=== PATIENT | female | born 1995 | race Caucasian/White ===

== ENCOUNTER 2017-05-28 04:47 | Emergency (ER) | payer OTHER ==
[~2017-05-28] VITALS: Ht 157.5 cm; Wt 61.1 kg
[2017-05-28 05:00] VITALS: TEMP 36.8; O2SAT 96; Ht 157.5 cm; Wt 61.1 kg
[2017-05-28 05:34] LABS: BASO % 0.5 %; BASO ABS # 0.05 K/uL (0-0.2); COMPLETE YES; EOS % 1.4 %; IG% 0.2 %; LYMPH % 33.5 %; LYMPH ABS # 3.09 K/uL (1.2-3.4); MEAN CELL VOLUME 80.6 fL (80-100); MEAN CORPUSCULAR HEMOGLOBIN 27.6 pg (25-34); MEAN CORPUSCULAR HGB CONC 34.3 g/dl (32-36); MEAN PLATELET VOLUME 9.2 fL (7.4-10.4); MONO % 7.8 %; NEUT % 56.6 %; PLATELET COUNT 446 K/uL (130-400); RED BLOOD COUNT 4.34 M/uL (4.2-5.4); WHITE BLOOD COUNT 9.22 K/uL (4.8-10.8)
--- NOTE | 2017-05-28 05:59 | EMERGENCY ROOM VISIT NOTE ---
History First contact with patient: 04:57 Chief Complaint: ALCOHOL OVERDOSE Stated Complaint: ALCOHOL OVERDOSE Nursing Triage Summary: Patient arrived BLS for evaluation of alcohol overdose. Patient was found sleeping in second floor laundry room of [facility]. Patient disoriented upon arrival to ED. Patient believes she is in [place] and was drinking at a [place] bar. Patient covered in dried dirt. Patient appears to be hallucinating and talking to people who are not there. History of Present Illness The patient is a 22 year old female who presents to the Emergency Room with reported alcohol overdose. Reportedly, the patient was found sleeping in the laundry room of the apartment building. The patient admits to drinking alcohol. The patient states that she is a student at [employer]. She denies any falls or injuries but does have several scrapes on her hands and does have dirt on her arms. She denies any pain. Review of Systems A 10 system review of systems was completed with positives and pertinent negatives listed in the HPI. Past Medical/Surgical History patient denies Social History Smoking Status: Never Smoker Occupation Status: student Current/Historical Medications No Active Prescriptions or Reported Meds Physical Exam Vital Signs Date Time Temp Pulse Resp B/P (MAP) Pulse Ox O2 Delivery O2 Flow Rate FiO2 05/28/17 11:40 86 18 128/78 97 05/28/17 09:47 78 16 118/75 100 Room Air 05/28/17 08:28 84 16 108/60 99 Room Air 05/28/17 07:03 77 18 107/61 95 Room Air 05/28/17 05:40 99 16 111/66 96 Room Air 05/28/17 05:00 36.8 131 18 139/89 96 Room Air 05/28/17 05:00 96 Room Air 05/28/17 05:00 109 Physical Exam VITALS: Vitals are noted on the nurse's note and reviewed by myself. Vital signs stable. GENERAL: This is a 22-year-old female, in no acute distress, nondiaphoretic, well-developed well-nourished. SKIN: The skin was without rashes, erythema, edema, or bruising. T there a few superficial scratches over the hands. There is no significant ecchymosis, edema to the extremities. There is no tenting of the skin. Capillary reflex less than 2 seconds. HEAD: Normocephalic atraumatic. EARS: External auditory canals clear, tympanic membranes pearly marroquin without erythema or effusion bilaterally. No hemotympanums. No parekh sign. No mastoid tenderness. EYES: Pupils equal round and reactive to light and accommodation. Conjunctivae without injection, sclerae without icterus. Extraocular movements intact. NOSE: Patent, turbinates without inflammation or discharge. No sinus tenderness. No septal hematoma or bleeding. FACE: No facial tenderness. Full range of motion of the jaw without tenderness. MOUTH: Mucous membranes moist. Pharynx without erythema or exudate. Uvula midline. Airway patent. Tongue does not deviate. NECK: Supple without nuchal rigidity. Cervical spine is nontender. Full range of motion of the neck without tenderness. No JVD. HEART: Regular rate and rhythm without murmurs gallops or rubs. LUNGS: Clear to auscultation bilaterally without wheezes, rales or rhonchi. No dullness to percussion. No retractions or accessory muscle use. No chest tenderness. ABDOMEN: Positive bowel sounds x 4. Soft, nontender, without masses or organomegaly. MUSCULOSKELETAL: No muscle atrophy, erythema, or edema noted. Full range of motion without joint tenderness in all extremities. No tenderness to palpation. Normal gait. Strength 5/5 throughout. NEURO: The patient was not oriented to place. The patient smelled of alcohol and seemed to be intoxicated. The patient seemed to be checking to people who were not there. No focal neurological deficits. Medical Decision & Procedures ER Provider Diagnostic Interpretation: HEAD WITHOUT CONTRAST (CT) CT DOSE: 537.48 mGy.cm HISTORY: Mental status change. altered mental status TECHNIQUE: Multiaxial CT images of the head were performed without the use of intravenous contrast. A dose lowering technique was utilized adhering to the principles of ALARA. Comparison: None. Findings: The paranasal sinuses and mastoid air cells are clear. The calvarium and skull base are intact. The ventricles and sulci are within normal limits. There is no mass, hematoma, midline shift, or acute infarct. Impression: No acute intracranial abnormality. Laboratory Results 05/28/17 05:24 Red Blood Count 4.34, Mean Corpuscular Volume 80.6, Mean Corpuscular Hemoglobin 27.6, Mean Corpuscular Hemoglobin Concent 34.3, Mean Platelet Volume 9.2, Neutrophils (%) (Auto) 56.6, Lymphocytes (%) (Auto) 33.5, Monocytes (%) (Auto) 7.8, Eosinophils (%) (Auto) 1.4, Basophils (%) (Auto) 0.5, Neutrophils # (Auto) 5.21, Lymphocytes # (Auto) 3.09, Monocytes # (Auto) 0.72, Eosinophils # (Auto) 0.13, Basophils # (Auto) 0.05 05/28/17 04:54 Test 05/28/17 04:54 05/28/17 04:59 05/28/17 05:24 Anion Gap 8.0 mmol/L (3-11) Est Creatinine Clear Calc Drug Dose 68.4 ml/min Estimated GFR () 82.0 Estimated GFR (Non- 70.7 BUN/Creatinine Ratio 7.3 (10-20) Calcium Level 8.7 mg/dl (8.5-10.1) Ethyl Alcohol mg/dL 226.0 mg/dl (0-3) White Blood Count 9.22 K/uL (4.8-10.8) Red Blood Count 4.34 M/uL (4.2-5.4) Hemoglobin 12.0 g/dL (12.0-16.0) Hematocrit 35.0 % (37-47) Mean Corpuscular Volume 80.6 fL (80-100) Mean Corpuscular Hemoglobin 27.6 pg (25-34) Mean Corpuscular Hemoglobin Concent 34.3 g/dl (32-36) Platelet Count 446 K/uL (130-400) Mean Platelet Volume 9.2 fL (7.4-10.4) Neutrophils (%) (Auto) 56.6 % Lymphocytes (%) (Auto) 33.5 % Monocytes (%) (Auto) 7.8 % Eosinophils (%) (Auto) 1.4 % Basophils (%) (Auto) 0.5 % Neutrophils # (Auto) 5.21 K/uL (1.4-6.5) Lymphocytes # (Auto) 3.09 K/uL (1.2-3.4) Monocytes # (Auto) 0.72 K/uL (0.11-0.59) Eosinophils # (Auto) 0.13 K/uL (0-0.5) Basophils # (Auto) 0.05 K/uL (0-0.2) RDW Standard Deviation 46.5 fL (36.4-46.3) RDW Coefficient of Variation 15.7 % (11.5-14.5) Immature Granulocyte % (Auto) 0.2 % Immature Granulocyte # (Auto) 0.02 K/uL (0.00-0.02) Salicylates Level < 1.7 mg/dl (2.8-20) Acetaminophen Level < 2 ug/ml (10-30) Medical Decision Prior records/ancillary studies reviewed. Triage Nursing notes reviewed. Additional history obtained from nursing/EMS. The patient's history was concerning for altered mental status and a possible alcohol overdose. Differential diagnosis: Etiologies such as alcohol intoxication, toxicologic, infection, hypoglycemia, electrolyte abnormalities, cardiac sources, intracerebral event, neurologic, as well as others were entertained. Physical examination: As above. The patient is clinically intoxicated. The patient does have a few superficial abrasions to the arms but no tenderness, ecchymosis, edema or decreased range of motion. She also has some dirt over her hands and arm. She denies any falls or injuries. There is no clinical evidence for head injury. ER treatment provided: Monitoring Aspiration precautions The patient was frequently reassessed. Diagnostic interpretation by me: Cardiac monitoring did not reveal any evidence of dysrhythmia. The labs revealed no significant electrolyte abnormality. There is no leukocytosis. Salicylate and Tylenol levels are not elevated.. The patient's blood alcohol level was 226 mg/dL. Imaging studies: CT scan of the brain was negative as above The patient came to the emergency department with report alcohol overdose. She was found sleeping in a laundry room of an apartment building where she did not live. She denied any falls, injuries or complaints when she arrived. The patient repeatedly stated she would like "them" to just go home and at some points she stated she would like "them "to come into her room. She did point stating they were outside. Nursing states they also observed the patient on the ambulance litter seeming to talk to someone that was not there. I advised the patient that I was concerned because she was pointing to and speaking of people who were not there. She then told me nevermind there is no one there. This could be hallucinations secondary to drug or alcohol use. However, the patient is intoxicated at this time. The patient was monitored. She was allowed to sober up. The patient will need reassessment and possibly psych evaluation when she is completely sober. The case was signed out to Irving Blakely PA-C. Please see his dictation for disposition. By the evaluation outlined above emergent etiologies such as trauma, infection, hypoglycemia, electrolyte abnormalities, cardiac sources, intracerebral event, neurologic,as well as others were deemed relatively unlikely. The patient was informed about the findings as listed above. The patient was counseled on the dangers of excessive alcohol use. I gave my usual and customary discussion regarding this issue. All questions were answered and the patient was pleased with the treatment. Return instructions were outlined and the patient was discharged in stable condition once their mental status improved and a safe destination was confirmed. Outpatient prescription management: None Referral: The patient was referred back to their primary care physician for follow-up in 2 to 3 days for a recheck of their current condition. Impression Primary Impression: Alcohol abuse Additional Impression: Alcoholic intoxication Departure Information Prescriptions No Active Prescriptions or Reported Meds Forms HOME CARE DOCUMENTATION FORM, IMPORTANT VISIT INFORMATION Patient Instructions My [facility] Problem Qualifiers
[2017-05-28 06:03] LABS: ACETAMINOPHEN < 2 ug/ml (10-30)
[2017-05-28 06:37] LABS: BUN/CREATININE RATIO 7.3 (10-20); CALCIUM 8.7 mg/dl (8.5-10.1); CREATININE 1.1 mg/dl (0.60-1.20); POTASSIUM 3.6 mmol/L (3.5-5.1)
--- NOTE | 2017-05-28 06:47 | DIAGNOSTIC IMAGING REPORT ---
HEAD WITHOUT CONTRAST (CT) CT DOSE: 537.48 mGy.cm HISTORY: Mental status change. altered mental status TECHNIQUE: Multiaxial CT images of the head were performed without the use of intravenous contrast. A dose lowering technique was utilized adhering to the principles of ALARA. Comparison: None. Findings: The paranasal sinuses and mastoid air cells are clear. The calvarium and skull base are intact. The ventricles and sulci are within normal limits. There is no mass, hematoma, midline shift, or acute infarct. Impression: No acute intracranial abnormality. The above report was generated using voice recognition software. It may contain grammatical, syntax or spelling errors. Electronically signed by: William Perez M.D. 05/28/2017 6:46 AM Dictated Date/Time: 05/28/2017 6:45 AM
[2017-05-28 11:40] VITALS: BP 128/78; PULSE 86; O2SAT 97
--- NOTE | 2017-05-28 16:31 | EMERGENCY ROOM VISIT NOTE ---
ED Visit Note First contact with patient: 08:15 Patient was signed out to me by Tremaine HENSLEY. Please see her dictation for full history and physical. She remained stable while in the ED this morning. She did wake around 9:30 AM. She requested to be discharged. She had no method of contacting friends. She did not bring any keys, phone, wall, or identification. He not know any numbers of friends. She states she just moved here from [place] and knows very few people. She remembers where the apartment is that she came from, but does not know the address or the name of the resident. She did go back to sleep. She awoke again around 11 AM. At this point she is quite sober. I did re-interview the patient and reexamine her as well. She denied any hallucinations. She states she did not take any drugs last night. She states she only drank too much. No prior psych history. He denies any other medical history. Physical exam, including skin, HEENT, heart, lungs, abdomen, and musculoskeletal system, were all normal. She has tattoos on her right arm. No abrasions or other areas of discomfort. She was discharged to [facility] with a bus token, insisting that she knew where her keys were at [facility]. Alcohol intoxication instructions were given. Avoid alcohol today. Maintain hydration. Tylenol every 6 hours as needed for mild discomfort. Return to the ED for any other concerns. Current/Historical Medications No Active Prescriptions or Reported Meds Allergies Coded Allergies: No Known Allergies (Unverified , 05/28/17) Vital Signs Date Time Temp Pulse Resp B/P (MAP) Pulse Ox O2 Delivery O2 Flow Rate FiO2 05/28/17 11:40 86 18 128/78 97 05/28/17 09:47 78 16 118/75 100 Room Air 05/28/17 08:28 84 16 108/60 99 Room Air 05/28/17 07:03 77 18 107/61 95 Room Air 05/28/17 05:40 99 16 111/66 96 Room Air 05/28/17 05:00 36.8 131 18 139/89 96 Room Air 05/28/17 05:00 96 Room Air 05/28/17 05:00 109 Laboratory Results 05/28/17 05:24 Red Blood Count 4.34, Mean Corpuscular Volume 80.6, Mean Corpuscular Hemoglobin 27.6, Mean Corpuscular Hemoglobin Concent 34.3, Mean Platelet Volume 9.2, Neutrophils (%) (Auto) 56.6, Lymphocytes (%) (Auto) 33.5, Monocytes (%) (Auto) 7.8, Eosinophils (%) (Auto) 1.4, Basophils (%) (Auto) 0.5, Neutrophils # (Auto) 5.21, Lymphocytes # (Auto) 3.09, Monocytes # (Auto) 0.72, Eosinophils # (Auto) 0.13, Basophils # (Auto) 0.05 05/28/17 04:54 Test 05/28/17 04:54 05/28/17 04:59 05/28/17 05:24 Anion Gap 8.0 mmol/L (3-11) Est Creatinine Clear Calc Drug Dose 68.4 ml/min Estimated GFR () 82.0 Estimated GFR (Non- 70.7 BUN/Creatinine Ratio 7.3 (10-20) Calcium Level 8.7 mg/dl (8.5-10.1) Ethyl Alcohol mg/dL 226.0 mg/dl (0-3) White Blood Count 9.22 K/uL (4.8-10.8) Red Blood Count 4.34 M/uL (4.2-5.4) Hemoglobin 12.0 g/dL (12.0-16.0) Hematocrit 35.0 % (37-47) Mean Corpuscular Volume 80.6 fL (80-100) Mean Corpuscular Hemoglobin 27.6 pg (25-34) Mean Corpuscular Hemoglobin Concent 34.3 g/dl (32-36) Platelet Count 446 K/uL (130-400) Mean Platelet Volume 9.2 fL (7.4-10.4) Neutrophils (%) (Auto) 56.6 % Lymphocytes (%) (Auto) 33.5 % Monocytes (%) (Auto) 7.8 % Eosinophils (%) (Auto) 1.4 % Basophils (%) (Auto) 0.5 % Neutrophils # (Auto) 5.21 K/uL (1.4-6.5) Lymphocytes # (Auto) 3.09 K/uL (1.2-3.4) Monocytes # (Auto) 0.72 K/uL (0.11-0.59) Eosinophils # (Auto) 0.13 K/uL (0-0.5) Basophils # (Auto) 0.05 K/uL (0-0.2) RDW Standard Deviation 46.5 fL (36.4-46.3) RDW Coefficient of Variation 15.7 % (11.5-14.5) Immature Granulocyte % (Auto) 0.2 % Immature Granulocyte # (Auto) 0.02 K/uL (0.00-0.02) Salicylates Level < 1.7 mg/dl (2.8-20) Acetaminophen Level < 2 ug/ml (10-30) Departure Information Impression Primary Impression: Alcoholic intoxication Dispostion Home / Self-Care Condition GOOD Prescriptions No Active Prescriptions or Reported Meds Referrals No Doctor, Assigned (PCP) Forms ALCOHOL OVERDOSE (21 OR Older), HOME CARE DOCUMENTATION FORM, MOTRIN USE, TYLENOL USE, IMPORTANT VISIT INFORMATION Patient Instructions Alcohol Intoxication - [facility], [facility] Additional Instructions Avoid alcohol today No driving for another hour Maintain hydration Tylenol and Motrin every 6 hours as needed for discomfort Follow-up with your PCP as needed or return to the ED for any acute changes
== END 2017-05-28 11:40 | disposition home or self-care (01) ==
LOC: C.EDB 04:50
DX: F10.920 Alcohol use, unspecified with intoxication, uncomplicated (principal); F10.129 Alcohol abuse with intoxication, unspecified; Y90.8 Blood alcohol level of 240 mg/100 ml or more